=== PATIENT | female | born 2000 | race Caucasian/White ===

== ENCOUNTER 2024-05-21 18:46 | Emergency (ER) | payer BC, SELFPAY ==
[2024-05-21 18:47] VITALS: BP 126/82; PULSE 75; RESP 18; TEMP 36.4; O2SAT 99; BMI 18.5
[2024-05-21] MEDS: dexAMETHasone 4 MG Tablet 12 MG PO (19:15)
--- NOTE | 2024-05-21 19:29 | EDS_ITS ---
HPI <MIROSLAVA Black - Last Filed: 05/21/24 20:15> History of Present Illness Chief Complaint: Sore Throat Narrative Narrative: Patient is a 23-year-old female with no significant medical history presents to the emergency department with complaint of sore throat, cough and congestion has been ongoing for 1 week. Patient go to urgent care and did not have any results. Patient states that the pain is getting worse, she is here for reevaluation. Denies any other injury. PFSH <MIROSLAVA Black - Last Filed: 05/21/24 20:15> [facility] Medical History no medical history Home Medications ?Medication ?Instructions ?Recorded ?Last Taken ?Type azithromycin 250 mg tablet 250 mg PO DAILY 4 days #4 tabs 05/21/24 Unknown Rx Allergy/AdvReac Type Severity Reaction Status Date / Time No Known Allergies Allergy Verified 05/21/24 18:46 Surgical History no surgical history Social History Smoking Status: Never smoker ROS <MIROSLAVA Black - Last Filed: 05/21/24 20:15> ROS ED ROS Narrative Constitutional: Negative for fever, chills, weight loss, weakness Eyes: Negative for vision loss, vision change, double vision ENT: Negative for any ear pain, conge. Positive for sore throat Cardiovascular: Negative for any chest pain, tightness, palpitations Respiratory: Negative for any sputum production, hemoptysis, dyspnea, dyspnea on exertion, orthopnea. Positive for cough Gastrointestinal: Negative for any abdominal pain, nausea, vomiting, diarrhea, constipation, blood in stool, blood in vomit : Negative for any urinary frequency, dysuria, retention, blood in urine Muscle skeletal: Negative for any neck pain, back pain Neurological: Negative for any headache, syncope, dizziness Skin: Negative for any rashes, itching, abrasions, lacerations Psychiatric: Negative for any depression, anxiety, stress, suicidal ideation, homicidal ideation Hematologic: Negative for any excessive bruising, easy bleeding EXAM <MIROSLAVA Black - Last Filed: 05/21/24 20:15> Physical Exam Narrative Exam Narrative: Vital signs reviewed. HEET: Head normocephalic atraumatic, TMs clear bilaterally. Posterior pharynx is clear, moist mucous membranes. Nares clear bilaterally. Posterior pharynx is slightly erythematous, there is no exudate. There is no swelling. Neck: Supple with no lymphadenopathy or tenderness. No signs of meningismus. Cardiac: Regular rate and rhythm no murmurs gallops or rubs, equal peripheral pulses bilaterally. Respiratory: Lungs clear to auscultation bilaterally. No chest tenderness. Abdomen: Soft, nontender, nondistended. No abdominal bruit or pulsatile masses. No hepatosplenomegaly Extremities: No peripheral edema, no signs of gross trauma or deformity. Active full range of motion of all extremities. Neuro: Cranial nerves II through XII intact, no focal neurological deficits. Skin: Clean dry and intact with no rash, purpura, petechiae, vesicles or pustules. Backs/flank: No CVA tenderness, no midline spinal tenderness, no deformity. Psych: Normal mood and affect. No SI, HI or acute psychosis. Const Vital Signs: 05/21/24 18:47 Temperature 97.6 F L Temperature Source Temporal Pulse Rate 75 Respiratory Rate 18 Blood Pressure 126/82 H Blood Pressure Mean 96 Pulse Ox 99 Oxygen Delivery Method Room Air Positive well nourished and well developed General Appearance ED: well developed <Dr. Chris Anaya DO - Last Filed: 05/21/24 20:26> Physical Exam Const Vital Signs: 05/21/24 18:47 Temperature 97.6 F L Temperature Source Temporal Pulse Rate 75 Respiratory Rate 18 Blood Pressure 126/82 H Blood Pressure Mean 96 Pulse Ox 99 Oxygen Delivery Method Room Air MDM <MIROSLAVA Black - Last Filed: 05/21/24 20:15> MDM Treatment and Re-Evaluation :: Differential diagnosis includes however is not limited to: Strep throat, COVID- 19, influenza, RSV, other viral-like illness Patient appears generally well, vital signs are stable, patient is nontoxic- appearing. Presenting to the [facility] part with complaints of sore throat, cough for 1 week. Patient will receive rapid strep test, as well as COVID-19 influenza RSV, patient be given oral dexamethasone. Patient is rapid strep, COVID-19 influenza RSV was negative. At this time, patient be treated with azithromycin. Given 500 mg here, 250 mg for 4 days. She instructed return for any worsening symptoms. All questions answered, stable for discharge. <Dr. Chris Anaya DO - Last Filed: 05/21/24 20:26> MDM Treatment and Re-Evaluation :: Differential diagnosis includes however is not limited to: Strep throat, COVID- 19, influenza, RSV, other viral-like illness Patient appears generally well, vital signs are stable, patient is nontoxic- appearing. Presenting to the [facility] part with complaints of sore throat, cough for 1 week. Patient will receive rapid strep test, as well as COVID-19 influenza RSV, patient be given oral dexamethasone. Patient is rapid strep, COVID-19 influenza RSV was negative. At this time, patient be treated with azithromycin. Given 500 mg here, 250 mg for 4 days. She instructed return for any worsening symptoms. All questions answered, stable for discharge. ED attending note: I evaluated the patient in conjunction with the DEAN. I agree with his/her statements and above findings. I have personally performed a face to face assessment of the patient and have reviewed the DEAN Note. I performed a substantive portion of the visit including all aspects of the following. I personally saw the patient performed chart review, physical exam, reviewed labs, imaging (if obtained), and formulated a treatment and management plan. This note was generated with [employer] dictation software. It may contain incorrect words, spelling, and punctuation that were not noted in review of the chart prior to signing. Discharge Plan Triage Chief Complaint: Sore Throat ED Midlevel Provider: Kehinde Castillo ED Provider: Chris Anaya Dx/Rx/DC Orders Clinical Impression: Viral pharyngitis, Bronchitis Instructions: ED Bronchitis, No Antibiotic (Adult), ED Pharyngitis, Viral Prescriptions: New azithromycin 250 mg tablet 250 mg PO DAILY 4 Days Qty: 4 0RF Rx Instructions: start on day 2 of therapy Primary Care Provider: Care Physician,No Primary Referrals: Care Physician,No Primary [Primary Care Provider] - Activity Restrictions/Additional Instructions: Take the antibiotics until finished. Print Language: Eritrean Disposition Disposition: Home, Self Care
[2024-05-21] MEDS: Azithromycin 250 MG Tablet 500 MG PO (20:30)
== END 2024-05-21 20:43 | disposition home or self-care (01) ==
PROVIDERS: Emergency Provider Emergency Medicine; Visit Provider Emergency Medicine
DX: J02.8 Acute pharyngitis due to other specified organisms (principal); B97.89 Other viral agents as the cause of diseases classified elsewhere; J40 Bronchitis, not specified as acute or chronic
CPT/HCPCS: 87631; 87651; 99282